=== PATIENT | female | born 1975 | race Caucasian/White ===

== ENCOUNTER 2025-07-03 14:33 | Outpatient (CLI) | payer OTHER, SELFPAY ==
[2025-07-04 07:10] LABS: FSH 9.8 mIU/mL (.)
[2025-07-04 10:08] LABS: LH 14.2 mIU/mL (.)
--- OUTSIDE RECORDS SUMMARY | 2025-07-04 14:13 | XMS_ITS | Encounter Summary ---
Author Organization [facility] Address [address] [place] [address] Care Team Providers Care Kennel Worker Name Role Phone Capri Vázquez MD Primary Care Provider [phone] Encounter Details Date Type Department Care Team (Late st Contact Info) Description 01/20/2024 [employer] Message [facility] Zylie the Bear [facility] [address] [place] [address] [employer], [facility] Provider Proxy Request Social History Tobacco Use Types Packs/Day Years Used Date Smoking Tobacco: Never Smokeless Tobacco: Never Alcohol Use Standard Drinks/Week Comments Yes 0 (1 standard drink = 0.6 oz pur e alcohol) rare Humiliation, Afraid, Rape, and Kick questionnair e Answer Date Recorded Within the last year, have y ou been afraid of your partner or ex-partner? No 06/08/2023 Within the last year, have y ou been humiliated or emotionally abused in other ways by your partner or ex-partner? No Within the last year, have y ou been kicked, hit, slapped, or otherwise physically hurt by your partner or ex-partner? No 06/08/2023 Within the last year, have y ou been raped or forced to have any kind of sexual activity by your partner or ex-partner? No 06/08/2023 Overall Financial Resource Strain (CARDIA) Answe r Date Recorded How hard is it for you to pa y for the very basics like food, housing, medical care, and heating? Not hard at all 06/08/2023 Hunger Vital Sign Answer Date Recorded Within the past 12 months, y ou worried that your food would run out before you got the money to buy more. Never true 06/08/20 23 Within the past 12 months, t he food you bought just didn't last and you didn't have money to get more. Never true 06/08/2023 PRAPARE - Transportation Answer Date Re corded In the past 12 months, has l ack of transportation kept you from medical appointments or from getting medications? No 05/29 In the past 12 months, has l ack of transportation kept you from meetings, work, or from getting things needed for daily living? No 06/08/2023 Housing Stability Vital Sign Answer Nabor e Recorded In the last 12 months, was t here a time when you were not able to pay the mortgage or rent on time? No 06/08/2023 In the last 12 months, how many places have you lived? 1 06/08/2023 In the last 12 months, was t here a time when you did not have a steady place to sleep or slept in a half-way (including now)? No 06/08/2023 Comments No Sex and Gender Information Value Date Recorded Sex Assigned at Female 06/18/2025 12:33 PM CDT Legal Sex Female 6:08 PM CDT Gender Identity Not on file Sexual Orientation Not on file documented as of this encounter Functional Status * Are you deaf or do you have serious difficulty hearing Answer Date of Assessment Author Status No 06/08/2023 5:04 PM Dee Quiles RN Active * Are you blind or do you have serious difficulty seeing, even when wearing glasses? Answer Date of Assessment Author Status No 06/08/2023 5:04 PM Dee Quiles RN Active * Do you have serious difficulty walking or climbing stairs? Answer Date of Assessment Author Status No 06/08/2023 5:04 PM Dee Quiles RN Active * Do you have difficulty dressing or bathing? Answer Date of Assessment Author Status No 06/08/2023 5:04 PM Dee Quiles RN Active * Because of a physical, mental, or emotional condition, do you have difficulty doing errands alone such as visiting a doctor's office or shopping? Answer Date of Assessment Author Status No 06/08/2023 5:04 PM Dee Quiles RN Active documented as of this encounter Mental Status * Because of a physical, mental, or emotional condition, do you have serious difficulty concentrating, remembering, or making decisions? Answer Entry Date Author Status No 06/08/2023 5:04 PM Dee Quiles RN Active documented in this encounter Plan of Treatment Not on file documented as of this encounter Visit Diagnoses Not on filedocumented in this encounter Care Teams Kennel Worker Relationship Specialty Start Date End Date Capri Vázquez MD PCP - General FAMILY PRACTICE 06/16/20 documented as of this encounter
--- OUTSIDE RECORDS SUMMARY | 2025-07-04 14:13 | XMS_ITS | Encounter Summary ---
Author Organization [facility] Address [address] [place] [address] Care Team Providers Care Refund Specialist Name Role Phone Capri Vázquez MD Primary Care Provider Encounter Details Date Type Department Care Team (Late st Contact Info) Description 10/31/2023 Abstract [facility] [address] Milena Loya MA Social History Tobacco Use Types Packs/Day Years [...] place to sleep or slept in a penitentiary (including now)? No 06/08/2023 Comments No Sex [...] on file documented as of this encounter Procedures Procedure Name Priority Date/Time Associated Diagnosis Comments COMPREHENSIVE METABOLIC PANEL Routine 05/12/2023 LIPID PANEL Routine 05/12/2023 documented in this encounter Results * COMPREHENSIVE METABOLIC PANEL (05/12/2023) GLUCOSE 73 mg/dL us Default History Genericprovider LABORATORY Edited Result - Final * LIPID PANEL (05/12/2023) CHOLESTEROL 152 TRIGLYCERIDES 105 HDL 72 LDL (CALCULATED) 61 NON HDL CHOLESTEROL 80 us Default History Genericprovider LABORATORY Edited Result - Final documented in this encounter Visit Diagnoses Not on filedocumented in this encounter Care Teams Refund Specialist Relationship Specialty Start Date End Date Capri Vázquez MD PCP - General FAMILY PRACTICE 06/16/20 documented as of this encounter
--- OUTSIDE RECORDS SUMMARY | 2025-07-04 14:13 | XMS_ITS | Encounter Summary ---
Author Organization [facility] Address [address] [place] [address] Care Team Providers Care Can Dragger Name Role Phone Capri Vázquez MD Primary Care Provider Encounter Details Date Type Department Care Team (Late st Contact Info) Description 10/30/2023 [facility] Message Enc [facility] [place] [id number] Nikolay Currie MD [facility]. [address] [id number] Lab test Social History Tobacco Use Types Packs/Day Years [...] place to sleep or slept in a usp (including now)? No 06/08/2023 Comments No Sex [...] Assessment Author Status No 06/08/2023 5:04 PM CDT Dee Saldaña RN Active * Are you blind or [...] Quiles RN Active documented in this encounter Progress Notes * VENITA Cheatham - 10/31/2023 8:07 AM CST Noted. No, she's does not now. Can you scan in these results in her chart? ICAL DEVICE SALES REPRESENTATIVE documented in this encounter Plan of Treatment Not on file documented as of this encounter Visit Diagnoses Not on filedocumented in this encounter Care Teams Can Dragger Relationship Specialty Start Date End Date Capri Vzáquez MD PCP - General FAMILY PRACTICE 06/16/20 documented as of this encounter
--- OUTSIDE RECORDS SUMMARY | 2025-07-04 14:13 | XMS_ITS | Clinical Summary ---
Author Organization [facility] Address [address] [place] [address] Care Team Providers Care Asbestos Coverer Name Role Phone Capri Vázquez MD Primary Care Provider [phone] Allergies Active Allergy Reactions Criticality Noted Date Comments Iodinated Contrast Media Runny Nose,Itching,Sneezing Low 08/06/2020 Medications ibuprofen (MOTRIN) 200 MG tablet Take 2 tablets (400 mg total) by mouth every 6 (six) hours as needed for Pain or Fever. Active estradiol (ESTRACE) 2 MG tablet Take 1 tablet (2 mg total) by mouth daily. 11/27/2024 Active NEXPLANON 68 MG SC implant 1 each (68 mg total) by Implant route once. 05/08/2024 Active loratadine (CLARITIN) 10 MG tablet Take 1 tablet (10 mg total) by mouth daily. Active Active Problems Problem Noted Date Diagnosed Date PNA (pneumonia) 06/08/2023 Encounters Date Type Department Care Team Description 06/18/2025 Travel from Last 3 Months Family History Medical History Relation Comments Heart Attack Brother cardiac stents Brother age 52 CABG Father AR Father age 52 Stroke Father cardiac stent Father Stroke Maternal Grandmother Breast Cancer Paternal Aunt Heart Attack Paternal Grandmother Stroke Paternal Grandmother Relation Status Comments Brother Alive Father Maternal Grandfather Maternal Grandmother Mother Alive Paternal Aunt Paternal Grandfather Paternal Grandmother Social History Tobacco Use Types Packs/Day Years Used Date Smoking Tobacco: Never Smokeless Tobacco: Never Tobacco Cessation:Counseling Given: Not Answered Alcohol Use Standard Drinks/Week Comments Yes 0 [...] place to sleep or slept in a jail (including now)? No 06/08/2023 Comments No Sex and Gender Information Value Date Recorded Sex Assigned at Female 06/18/2025 12:33 PM CDT Legal Sex Female 6:08 PM CDT Gender Identity Not on file Sexual Orientation Not on file Last Filed Vital Signs Vital Sign Reading Time Taken Comments Blood Pressure 137/103 01/30/2025 10:52 AM CDT Pulse 86 01/30/2025 10:15 AM CDT Temperature 37.2 C (99 F) 01/30/2025 10:52 AM CDT Respiratory Rate 16 01/30/2025 10:15 AM CDT Oxygen Saturation 97% 01/30/2025 10:52 AM CDT Inhaled Oxygen Concentration - - Weight 72.7 kg (160 lb 4.4 oz) 01/30/2025 6:50 A M CDT Height 162.6 cm (5' 4) 01/30/2025 6:50 AM CDT Body Mass Index 27.51 01/30/2025 6:50 AM CDT Plan of Treatment Health Maintenance Due Date Last Done Comments Cervical Cancer Screening Pap Smear (Age 30 to 64) Every 3 Years 1973 Colorectal Cancer Screening Colonoscopy (10 Years) 1973 Annual Physical 1976 Hepatitis C 1991 DTaP, Tdap and Td Vaccines (1 - Tdap) 1992 Hepatitis B Vaccines (1 of 3 - 19+ 3-dose series) 1992 Cervical Cancer Screening Pap with HPV Testing (Age 30 to 64) Every 5 Years 2003 Cervical Cancer Screening with HPV 2003 Pneumococcal Vaccine: 50+ Years (1 of 1 - PCV) 2023 Zoster Vaccines (1 of 2) 2023 COVID-19 Vaccine (1 - 2024- season) 2025 Influenza Adult (#1) 2025 Mammogram Screening 06/18/2027 06/18/2025, 12/18/2024, 06/27/2024, Additional history exists Hepatitis A Vaccines Aged Out No long er eligible based on patient's age to complete this topic Meningococcal B Vaccine Aged Out No l onger eligible based on patient's age to complete this topic Meningococcal Vaccine Aged Out No kirstie blessing eligible based on patient's age to complete this topic RSV Immunizations Under 20 Months Aged Out No longer eligible based on patient's age to complete this topic Procedures Procedure Name Priority Date/Time Associated Diagnosis Comments US BREAST RT BIRAD LTD Routine 06/18/2025 2:01 PM CDT Abnormal mammogram MG DIAG W CK BILAT DIGI Routine 06/18/2025 1:10 PM CDT Abnormal mammogram from Last 3 Months Results * US BREAST RT [employer]antage (06/18/2025 2:01 PM CDT) Anatomical Region Laterality Modality Breast Right Ultrasound 06/18/2025 2:01 PM CDT Impressions 06/18/2025 2:14 PM CDT =====IMPRESSION:===== Stable right breast masses in the 11:00 and 12:00 sectors, probably benign. Follow-up right diagnostic mammogram and ultrasound are recommended in 6 months. ASSESSMENT: ACR BI-RADS 3 - PROBABLY BENIGN FINDING(S) - SHORT INTERVAL FOLLOW- UP SUGGESTED Recommendation: 1: Short interval follow-up in 6 months. Right Ordered By: OMERO KENDRICK Interpreted By: Jayson Recinos MD, 06/18/2025 2:01 PM Narrative 06/18/2025 2:[address] PM CDT [address] [address] EXAMINATION: Digital bilateral diagnostic mammogram with 3-D tomography; right breast ultrasound [id number] EXAM DATE/TIME: 06/18/2025 12:44 PM REASON FOR EXAM: Follow-up left breast masses. COMPARISON: 01/30/2025, 12/18/2024, 06/27/2024, 05/31/2024, 05/24/2024 TECHNIQUE: Digital diagnostic mammography of both breasts was performed in addition to 3-D Tomosynthesis technique. This study was read with the assistance of a computer-aided detection system. Right breast ultrasound was performed. TISSUE DENSITY: The breasts are heterogeneously dense, which may obscure small masses. FINDINGS: Mammogram findings: The breast parenchymal pattern is stable bilaterally. Multiple chronic masses are grossly stable, somewhat obscured by overlying dense parenchymal tissue. A few benign-appearing calcifications are noted bilaterally. No suspicious calcifications on either side. Ultrasound findings: -Small hypoechoic cystic mass in the 12:00, 3 cm coordinates measuring 6 mm, stable. -Solid mildly hypoechoic ovoid mass in the 11:00, 2 cm coordinates measuring 1.2 cm, stable. Probable fibroadenoma, but continued follow-up is recommended to ensure stability. us Omero Kendrick MD ULTRASOUND Final Result * MG DIAG W CK BILAT DIGI (06/18/2025 1:10 PM CDT) Anatomical Region Laterality Modality Breast Bilateral Mammography 06/18/2025 2:01 PM CDT Impressions 06/18/2025 2:14 PM CDT =====IMPRESSION:===== Stable right breast masses in the 11:00 and 12:00 sectors, probably benign. Follow-up right diagnostic mammogram and ultrasound are recommended in 6 months. ASSESSMENT: ACR BI-RADS 3 - PROBABLY BENIGN FINDING(S) - SHORT INTERVAL FOLLOW- UP SUGGESTED Recommendation: 1: Short interval follow-up in 6 months. Right Ordered By: OMERO KENDRICK Interpreted By: Jayson Recinos MD, 06/18/2025 2:01 PM Narrative 06/18/2025 2:14 PM CDT [address] [address] EXAMINATION: Digital bilateral diagnostic mammogram with 3-D tomography; right breast ultrasound [id number] EXAM DATE/TIME: 06/18/2025 12:44 PM REASON FOR EXAM: Follow-up left breast masses. COMPARISON: 01/30/2025, 12/18/2024, 06/27/2024, 05/31/2024, 05/24/2024 TECHNIQUE: Digital diagnostic mammography of both breasts was performed in addition to 3-D Tomosynthesis technique. This study was read with the assistance of a computer-aided detection system. Right breast ultrasound was performed. TISSUE DENSITY: The breasts are heterogeneously dense, which may obscure small masses. FINDINGS: Mammogram findings: The breast parenchymal pattern is stable bilaterally. Multiple chronic masses are grossly stable, somewhat obscured by overlying dense parenchymal tissue. A few benign-appearing calcifications are noted bilaterally. No suspicious calcifications on either side. Ultrasound findings: -Small hypoechoic cystic mass in the 12:00, 3 cm coordinates measuring 6 mm, stable. -Solid mildly hypoechoic ovoid mass in the 11:00, 2 cm coordinates measuring 1.2 cm, stable. Probable fibroadenoma, but continued follow-up is recommended to ensure stability. us Omero Kendrick MD MAMMO Final Result from Last [address] [place] [address] [address] Advance Directives * Full Code (Latest Code Status on File) Date Activated Date Inactivated Comments 06/09/2023 7:40 AM 06/10/2023 3:24 PM Care Teams Asbestos Coverer Relationship Specialty Start Date End Date Capri Vázquez MD PCP - General FAMILY PRACTICE 06/16/20
== END 2025-07-03 14:34 | disposition home or self-care (01) ==
PROVIDERS: PCP Family Medicine; Visit Provider Obstetrics & Gynecology
DX: N92.1 Excessive and frequent menstruation with irregular cycle (principal)
CPT/HCPCS: 83001; 83002